=== PATIENT | female | born 1950 | race Caucasian/White ===

== ENCOUNTER → 2017-04-16 | Outpatient (CLI) | payer MEDICARE ==
--- NOTE | 2017-04-16 15:03 | XR ---
EXAM TYPE: LUMBAR SPINE X RAY SERIES COMPARISON: NONE HISTORY: Pain TECHNIQUE: 4 views are submitted. FINDINGS: There is diffuse osteopenia and a grade 1 anterolisthesis L4 and L5. Severe degenerative disc disease L4-5 and L5-S1 with mild changes at the remaining levels. Severe facet arthropathy L4-5 and L5-S1. S urgical clips in the right upper quadrant. IMPRESSION: 1. Multilevel degenerative disc disease and facet arthropathy with grade 1 anterolisthesis L4 on L5. Correlate with MRI. Foraminal encroachment suspected.
== END | disposition home or self-care (01) ==
LOC: RADXRYALE 10:43
PROVIDERS: ATTEND Internal Medicine
DX: M51.16 Intervertebral disc disorders with radiculopathy, lumbar region (principal); M43.16 Spondylolisthesis, lumbar region; M46.86 Other specified inflammatory spondylopathies, lumbar region
CPT/HCPCS: 72110

== ENCOUNTER → 2017-06-26 | Outpatient (CLI) | payer MEDICARE ==
--- NOTE | 2017-06-29 08:43 | MM ---
Reason for exam: screening (asymptomatic). Last mammogram was performed 1 year ago. History: Patient is postmenopausal. Family history of premenopausal breast cancer in maternal cousin at age 30. 2 benign excisional biopsies of the right breast, 2005. Took hormonal contraceptives for 4 years beginning at age 23. Took progesterone for 3 months. Physical Findings: A clinical breast exam by your physician is recommended on an annual basis and results should be correlated with mammographic findings. MG 3D Screening Mammo W/Cad Bilateral CC and MLO view(s) were taken. Prior study comparison: June 20, 2016, bilateral MG screening mammo w CAD. June 04, 2015, bilateral MG screening mammo w CAD. There are scattered fibroglandular densities. There is no discrete abnormality. No significant changes when compared with prior studies. ASSESSMENT: Negative, BI-RAD 1 RECOMMENDATION: Routine screening mammogram of both breasts in 1 year.
== END | disposition home or self-care (01) ==
LOC: RADMAMWWP 10:00
PROVIDERS: ATTEND Internal Medicine
DX: Z12.31 Encounter for screening mammogram for malignant neoplasm of breast (principal)
CPT/HCPCS: 77063; G0202

== ENCOUNTER → 2018-07-29 | Outpatient (CLI) | payer MEDICARE ==
--- NOTE | 2018-07-30 14:17 | MM ---
Reason for exam: screening (asymptomatic). Last mammogram was performed 1 year and 1 month ago. History: Patient is postmenopausal. Family history of premenopausal breast cancer in maternal cousin at age 30. 2 benign excisional biopsies of the right breast, 2005. Took hormonal contraceptives for 4 years beginning at age 23. Took progesterone for 3 months. Physical Findings: A clinical breast exam by your physician is recommended on an annual basis and results should be correlated with mammographic findings. MG 3D Screening Mammo W/Cad Bilateral CC and MLO view(s) were taken. Prior study comparison: June 26, 2017, bilateral MG 3d screening mammo w/cad. June 20, 2016, bilateral MG screening mammo w CAD. There are scattered fibroglandular densities. No suspicious abnormality. Focal asymmetry, stable in the right upper outer quadrant at middle depth post surgical change on the right. No significant changes when compared with prior studies. ASSESSMENT: Benign, BI-RAD 2 RECOMMENDATION: Routine screening mammogram of both breasts in 1 year.
== END ==
LOC: RADMAMWWP 13:04
PROVIDERS: ATTEND Internal Medicine
DX: Z12.31 Encounter for screening mammogram for malignant neoplasm of breast (principal)
CPT/HCPCS: 77063; 77067

== ENCOUNTER 2019-05-11 09:09 | Day surgery (SDC) | payer MEDICARE ==
[2019-05-10 09:29] VITALS: BMI 33.8
[~2019-05-11 09:09] MED LIST: LACTATED RINGERS 1,000 ML IV SCH; LIDOCAINE 1% 20 ML VIAL (10MG/ML) FOR IV START INTRADERMA PRN
[2019-05-11 09:38] VITALS: TEMP 98.5
[2019-05-11] MEDS ORDERED: LIDOCAINE 1% INJ 10MG/ML (20 ML MDV) ONE (09:53)
[2019-05-11] MEDS ORDERED: PROPOFOL 10 MG/ML 20 ML VIAL IV ONE (09:53)
--- NOTE | 2019-05-11 10:11 | P.PCN ---
Date of Procedure: 05/11/19 Procedure(s) Performed: BRIEF HISTORY: Patient is a 69-year-old pleasant white female, scheduled for an elective colonoscopy as a part of evaluation of intermittent rectal bleeding. PROCEDURE PERFORMED: Colonoscopy. PREOPERATIVE DIAGNOSIS: Intermittent rectal bleeding. IV sedation per Anesthesia. PROCEDURE: After informed consent was obtained, the patient, was brought into the endoscopy unit. IV sedation was administered by Anesthesia under continuous monitoring. Digital rectal examination was normal. Initially the Olympus CF-160 flexible video colonoscope was then inserted in the rectum, gradually advanced into the cecum without any difficulty. Careful examination was performed as the scope was gradually being withdrawn. Ileocecal valve and the appendiceal orifice were visualized and appeared normal. Prep was excellent. Mucosa of the cecum, ascending colon, transverse colon, descending colon, sigmoid colon, and rectum appeared normal. Scattered sigmoid diverticulosis seen. Retroflexion was performed in the rectum and all internal hemorrhoids were seen. The patient tolerated the procedure well. IMPRESSION: She was advised to have a repeat screening colonoscopy in 10 years. Normal- appearing colon from rectum to cecum with no evidence of colorectal neoplasia. Scattered diverticulosis Small internal hemorrhoids RECOMMENDATIONS: Findings of this examination were discussed with the patient as well as a family..
[2019-05-11 10:17] VITALS: RESP 18
[2019-05-11 10:30] VITALS: BP 144/87; PULSE 53
== END 2019-05-11 11:07 | disposition home or self-care (01) ==
LOC: ORWHC2ENDO 09:09
PROVIDERS: ATTEND Internal Medicine Gastroenterology
DX: K57.30 Diverticulosis of large intestine without perforation or abscess without bleeding (principal); K64.8 Other hemorrhoids; Z88.2 Allergy status to sulfonamides
CPT/HCPCS: 45378; J2001; J2704

== ENCOUNTER → 2019-09-07 | Outpatient (CLI) | payer MEDICARE ==
--- NOTE | 2019-09-08 10:10 | MM ---
Reason for exam: screening (asymptomatic). Last mammogram was performed 1 year and 1 month ago. History: Patient is postmenopausal. Family history of premenopausal breast cancer in maternal cousin at age 30. 2 benign excisional biopsies of the right breast, 2005. Took hormonal contraceptives for 4 years beginning at age 23. Took progesterone for 3 months. Physical Findings: A clinical breast exam by your physician is recommended on an annual basis and results should be correlated with mammographic findings. MG 3D Screening Mammo W/Cad Bilateral CC and MLO view(s) were taken. Prior study comparison: July 29, 2018, bilateral MG 3d screening mammo w/cad. June 26, 2017, bilateral MG 3d screening mammo w/cad. There are scattered fibroglandular densities. Benign appearing calcifications in the right breast. No suspicious abnormality. Post surgical simon on the right. No significant changes when compared with prior studies. ASSESSMENT: Benign, BI-RAD 2 RECOMMENDATION: Routine screening mammogram of both breasts in 1 year.
== END | disposition home or self-care (01) ==
LOC: RADMAMWWP 10:47
PROVIDERS: ATTEND Internal Medicine
DX: Z12.31 Encounter for screening mammogram for malignant neoplasm of breast (principal)
CPT/HCPCS: 77063; 77067

== ENCOUNTER → 2019-09-19 | Outpatient (CLI) | payer MEDICARE ==
--- NOTE | 2019-09-19 10:17 | BD ---
EXAMINATION TYPE: Axial Bone Density DATE OF EXAM: 09/19/2019 COMPARISON: NONE CLINICAL HISTORY: N 95.1 Height: 5 FT 2 IN Weight: 198 FRAX RISK QUESTIONS: Alcohol (3 or more units per day): NO Family History (Parent hip fracture): NO Glucocorticoids (More than 3mos): NO (Ex: prednisone, prednisolone, methylprednisolone, dexamethasone, and hydrocortisone). History of Fracture in Adulthood: NO Secondary Osteoporosis: 1. Type 1 Diabetes: NO 2. Hyperthyroidism: NO 3. Menopause before 45: NO 4. Malnutrition: NO 5. Chronic liver disease: NO Rheumatoid Arthritis: NO Current Tobacco Use: NO RISK FACTORS HISTORY OF: Family History of Osteoporosis: MOTHER Active: MODERATE Postmenopausal woman: AGE 58 Lost more than 2 inches in height since high school: YES MEDICATIONS: Additional Medications: CLARITIN Additional History: STEROID INJ TO WRISTS EXAM MEASUREMENTS: Bone mineral densitometry was performed using the [employer] System. Bone mineral density as measured about the Lumbar spine is: ----- L1-L4(G/cm2): 1.043 T Score Values are as follows: ----- L2: -1.6 ----- L3: -1.0 ----- L4: -0.1 ----- L1-L4: -1.1 BASELINE Bone mineral density about the R hip (g/cm2): 0.746 Bone mineral density about the L hip (g/cm2): 0.845 T Score values are as follows: -----R Neck: -2.1 -----L Neck: -1.4 -----R Total: -1.1 -----L Total: -0.4 BASELINE IMPRESSION: Osteopenia (T Score between -2.5 and -1). There is slightly increased risk of fracture and the patient may be considered for treatment. Re-Screen 2-5 years. NOTE: T-SCORE=SD OF THE YOUNG ADULT MEAN.
== END | disposition home or self-care (01) ==
LOC: RADBDWWP 09:17
PROVIDERS: ATTEND Internal Medicine
DX: M85.80 Other specified disorders of bone density and structure, unspecified site (principal); N95.1 Menopausal and female climacteric states
CPT/HCPCS: 77080

== ENCOUNTER 2021-04-29 19:54 | Emergency (ER) | payer MEDICARE ==
[2021-04-29 21:00] VITALS: BP 108/72; PULSE 64; RESP 16; TEMP 98.5
--- NOTE | 2021-04-29 21:40 | XR ---
Result: History: Pain. Comparison: None available. Technique: 4 views of the right wrist. Findings: There is questionable nondisplaced fracture of the ulnar styloid process. There is small subchondral cystic change of the scaphoid proximal pole. Otherwise joint joint spaces are preserved. Impression: Questionable nondisplaced ulnar styloid process fracture.
--- NOTE | 2021-04-29 22:01 | ED ---
Upper Extremity HPI - General Chief Complaint: Extremity Injury, Upper Stated Complaint: R wrist injury Time Seen by Provider: 04/29/21 21:44 Source: patient, RN notes reviewed Mode of arrival: ambulatory Limitations: no limitations - History of Present Illness Initial Comments: Patient is a 71-year-old female that presents to emergency department compl aining of right wrist pain. She notes that she was at home when her dog jumped up on her and knocked her over she fell and hit her right wrist. She notes that the pain gradually got worse. She noted that she did have full range of motion sensation in her right hand and fingers. She wanted come evaluated for possible fracture. She denied any other issues or complaints. She was a well-appearing 71-year-old female in no apparent distress or pain. She denied any chest pain shortness breath headache nausea vomiting diarrhea constipation fever fatigue chills. - Related Data Home Medications Medication Instructions Recorded Confirmed No Known Home Medications 05/10/19 05/11/19 Allergies Allergy/AdvReac Type Severity Reaction Status Date / Time gluten Allergy Unknown Bloating, Verified 04/29/21 20:57 Digestive problems, Acne Sulfa (Sulfonamide Allergy Unknown Nausea & Verified 04/29/21 20:57 Antibiotics) Vomiting, Fever Review of Systems ROS Statement: Those systems with pertinent positive or pertinent negative responses have been documented in the HPI. ROS Other: All systems not noted in ROS Statement are negative. Past Medical History Past Medical History: Asthma Additional Past Medical History / Comment(s): SEASONAL ASTHMA & ENVIRONMENTAL ALLERGIES (MOLD), OCCASIONAL BLOOD IN STOOL. History of Any Multi-Drug Resistant Organisms: None Reported Past Surgical History: Section, Cholecystectomy, Tonsillectomy Additional Past Surgical History / Comment(s): COLONOSCOPY'S, LASEK EYE SURGERY Past Anesthesia/Blood Transfusion Reactions: No Reported Reaction Past Psychological History: No Psychological Hx Reported Smoking Status: Never smoker Past Alcohol Use History: None Reported Past Drug Use History: None Reported - Past Family History Mother Family Medical History: Cancer Father Family Medical History: Cancer Additional Family Medical History / Comment(s): LUNG CA WITH METS General Exam Limitations: no limitations General appearance: alert, in no apparent distress Head exam: Present: atraumatic, normocephalic, normal inspection Eye exam: Present: normal appearance, PERRL, EOMI. Absent: scleral icterus, conjunctival injection, periorbital swelling Neck exam: Present: normal inspection Respiratory exam: Present: normal lung sounds bilaterally. Absent: respiratory distress, wheezes, rales, rhonchi, stridor Cardiovascular Exam: Present: regular rate, normal rhythm, normal heart sounds. Absent: systolic murmur, diastolic murmur, rubs, gallop, clicks Extremities exam: Present: normal inspection, full ROM, normal capillary refill, other (Minimal tenderness over the ulnar aspect of the right wrist.). Absent: tenderness, pedal edema, joint swelling, calf tenderness Neurological exam: Present: alert, oriented X3 Psychiatric exam: Present: normal affect, normal mood Skin exam: Present: warm, dry, intact, normal color. Absent: rash Course Vital Signs 04/29/21 20:57 Temperature 98.5 F Pulse Rate 64 Respiratory 16 Rate Blood Pressure 108/72 O2 Sat by Pulse 98 Oximetry Procedures - Orthopedic Splinting/Casting Injury #1 Side: right Upper Extremity Injury Location: wrist Upper Extremity Immobilizer: volar splint, Franc wrap, synthetic pre-padded splint Medical Decision Making - Medical Decision Making 71-year-old female complaining of right wrist pain. X-ray the right wrist ordered. X-ray shows a questionable nondisplaced ulnar styloid fracture. Patient was splinted and will be given referral to orthopedics. Case discussed with Dr. Islas, itching discharge home. Disposition Clinical Impression: Fracture of right ulnar styloid Disposition: HOME SELF-CARE Condition: Stable Instructions (If sedation given, give patient instructions): Hand Fracture (ED) Additional Instructions: Please return to the Emergency Department if symptoms worsen or any other concerns. Follow-up with primary care 1-2 days. Follow-up with orthopedics as needed. Take Tylenol and Motrin as needed for pain. Is patient prescribed a controlled substance at d/c from ED?: No Referrals: Marcie Alejo MD [Primary Care Provider] - 1-2 days Emanuel Romero MD [Medical Doctor] - 1-2 days Time of Disposition: 22:01
== END 2021-04-29 22:06 | disposition home or self-care (01) ==
LOC: EC 19:54
DX: S52.614A Nondisplaced fracture of right ulna styloid process, initial encounter for closed fracture (principal); J45.909 Unspecified asthma, uncomplicated; Z88.2 Allergy status to sulfonamides; Z90.49 Acquired absence of other specified parts of digestive tract; Z90.89 Acquired absence of other organs; W01.198A Fall on same level from slipping, tripping and stumbling with subsequent striking against other object, initial encounter
CPT/HCPCS: 29125; 99283

== ENCOUNTER → 2022-02-20 | Outpatient (CLI) | payer MEDICARE ==
--- NOTE | 2022-02-21 08:23 | MM ---
Reason for Exam: Screening (asymptomatic). Last mammogram was performed 2 year(s) and 6 month(s) ago. Patient History: Menarche at age 14. First Full-Term at age 22. Postmenopausal. Progesterone for 3 months. Hormonal Contraceptives for 4 years from age 23 until age 27. 2005, Benign Excisional Biopsy on the right side. 2005, Benign Excisional Biopsy on the right side. Maternal cousin had breast cancer, age 30. Risk Values: Johanny 5 year model risk: 2.3%. NCI Lifetime model risk: 7.1%. Prior Study Comparison: 06/26/2017 Bilateral Screening Mammogram, [facility]. 07/29/2018 Bilateral Screening Mammogram, [facility]. 09/07/2019 Bilateral Screening Mammogram, [facility]. Tissue Density: The breast tissue is almost entirely fat. Findings: Analyzed By CAD. There is no suspicious group of microcalcifications or new suspicious mass in either breast. Overall Assessment: Negative, BI-RAD 1 Management: Screening Mammogram of both breasts in 1 year. A clinical breast exam by your physician is recommended on an annual basis and results should be correlated with mammographic findings. Electronically signed and approved by: Renato Johnson DO
== END | disposition home or self-care (01) ==
LOC: RADMAMWWP 13:24
PROVIDERS: ATTEND Internal Medicine
DX: Z12.31 Encounter for screening mammogram for malignant neoplasm of breast (principal); Z78.0 Asymptomatic menopausal state
CPT/HCPCS: 77063; 77067

== ENCOUNTER → 2023-03-31 | Outpatient (CLI) | payer MEDICARE ==
--- NOTE | 2023-04-01 13:43 | MM ---
Reason for Exam: Screening (asymptomatic). Last mammogram was performed 1 year(s) and 1 month(s) ago. Patient History: Menarche at age 14. First Full-Term at age 22. Postmenopausal. Progesterone for 3 months. Hormonal Contraceptives for 4 years from age 23 until age 27. 2006, Benign Excisional Biopsy on the right side. 2006, Benign Excisional Biopsy on the right side. Maternal cousin had breast cancer, age 30. Risk Values: Johanny 5 year model risk: 2.3%. NCI Lifetime model risk: 6.7%. Prior Study Comparison: 07/29/2018 Bilateral Screening Mammogram, [facility]. 09/07/2019 Bilateral Screening Mammogram, [facility]. 02/20/2022 Bilateral MG 3D screening mammo w/cad, [facility]. Tissue Density: The breast tissue is heterogeneously dense. This may lower the sensitivity of mammography. Findings: Analyzed By CAD. There is no suspicious group of microcalcifications or new suspicious mass in either breast. Overall Assessment: Negative, BI-RAD 1 Management: Screening Mammogram of both breasts in 1 year. . Patient should continue monthly self-breast exams. A clinical breast exam by your physician is recommended on an annual basis. This exam should not preclude additional follow-up of suspicious palpable abnormalities. Note on Johanny scores and lifetime risk: 1. A Johanny score greater than 3% is considered moderate risk. If this is the case, consider specialist referral to assess eligibility for a risk reducing agent. 2. If overall lifetime risk for the development of breast cancer is 20% or higher, the patient may qualify for future screening with alternating mammogram and breast MRI. Electronically signed and approved by: Edgar Phillips M.D. Radiologis
--- NOTE | 2023-04-01 23:25 | BD ---
EXAMINATION TYPE: Axial Bone Density DATE OF EXAM: 03/31/2023 CLINICAL HISTORY: 72 years old Female. ICD-10 CODE: N95.8 Height: 61.25 Weight: 178.9 FRAX RISK QUESTIONS: Alcohol (3 or more units per day): no Family History (Parent hip fracture): no Glucocorticoids (More than 3mos): no History of Fracture in Adulthood: no Secondary Osteoporosis: 1. Type 1 Diabetes: no 2. Hyperthyroidism: no 3. Menopause before 45: no 4. Malnutrition: no 5. Chronic liver disease: no Rheumatoid Arthritis: no Current Tobacco Use: no RISK FACTORS HISTORY OF: Hip Fracture (Right/Left): no Spine Fracture: no History of Wrist Fracture: no Surgery to Spine/Hip(right/left)/Wrist (right/left): no Family History of Osteoporosis: mother, sister Active: yes Diet low in dairy products/other sources of calcium: no Postmenopausal woman: yes Take estrogen and/or progesterone medications: no Lost more than 2 inches in height since high school: yes Frequent falls: no Poor Health: no Hyperparathyroidism: no Adrenal Insufficiency: no MEDICATIONS: Prednisone or other steroids: no Thyroid Medications: no Osteoporosis Medications: no Additional Medications: Vit D, Multi Vit, Calcium, Fish Oil Additional History: EXAM MEASUREMENTS: Bone mineral densitometry was performed using the [employer] System. Bone mineral density as measured about the Lumbar spine is: ----- L1-L4(G/cm2): 1.049 T Score Values are as follows: ----- L1: -1.9 ----- L2: -2.3 ----- L3: -0.9 ----- L4: 0.1 ----- L1-L4: -1.1 Z Score Values are as follows: ----- L1: -0.7 ----- L2: -1.1 ----- L3: 0.2 ----- L4: 1.2 ----- L1-L4: 0.1 Bone mineral density has: increased 0.6 % since study of: 09/19/2019 Bone mineral density about the R hip (g/cm2): 0.855 Bone mineral density about the L hip (g/cm2): 0.859 T Score values are as follows: -----R Neck: -1.6 -----L Neck: -1.7 -----R Total: -1.2 -----L Total: -1.2 Z Score values are as follows: -----R Neck: -0.2 -----L Neck: -0.3 -----R Total: -0.1 -----L Total: -0.1 Bone mineral density has: decreased -6.7 % since study of: 09/19/2019 FRAX%s: The graph provided illustrates a 10.1% chance for a major osteoporotic fx and a 1.7% chance f or the hips probability for fx in 10 years time. IMPRESSION: Osteopenia (T Score between -2.5 and -1). There is slightly increased risk of fracture and the patient may be considered for treatment. Re-Screen 2-5 years. NOTE: T-SCORE=SD OF THE YOUNG ADULT MEAN.
== END | disposition home or self-care (01) ==
LOC: RADMAMWWP 15:18
PROVIDERS: ATTEND Internal Medicine
DX: Z12.31 Encounter for screening mammogram for malignant neoplasm of breast (principal); N95.8 Other specified menopausal and perimenopausal disorders; Z78.0 Asymptomatic menopausal state; Z80.3 Family history of malignant neoplasm of breast
CPT/HCPCS: 77063; 77067; 77080

== ENCOUNTER → 2024-04-01 | Outpatient (CLI) | payer MEDICARE ==
--- NOTE | 2024-04-18 10:23 | MM ---
Reason for Exam: Screening (asymptomatic). Last screening mammogram was performed 12 month(s) ago. Patient History: Menarche at age 14. First Full-Term at age 22. Postmenopausal. Progesterone for 3 months. Hormonal Contraceptives for 4 years from age 23 until age 27. 2006, Benign Excisional Biopsy on the right side. 2006, Benign Excisional Biopsy on the right side. Maternal cousin had breast cancer, age 30. Risk Values: Johanny 5 year model risk: 2.3%. NCI Lifetime model risk: 6.4%. Prior Study Comparison: 09/07/2019 Bilateral Screening Mammogram, [facility]. 02/20/2022 Bilateral MG 3D screening mammo w/cad, [facility]. 03/31/2023 Bilateral MG 3D screening mammo w/cad, [facility]. Tissue Density: There are scattered areas of fibroglandular density. Findings: Analyzed By CAD. There is no suspicious group of microcalcifications or new suspicious mass in either breast. Overall Assessment: Benign, BI-RAD 2 Management: Screening Mammogram of both breasts in 1 year. . Patient should continue monthly self-breast exams. A clinical breast exam by your physician is recommended on an annual basis. This exam should not preclude additional follow-up of suspicious palpable abnormalities. Note on Johanny scores and lifetime risk: 1. A Johanny score greater than 3% is considered moderate risk. If this is the case, consider specialist referral to assess eligibility for a risk reducing agent. 2. If overall lifetime risk for the development of breast cancer is 20% or higher, the patient may qualify for future screening with alternating mammogram and breast MRI. Electronically signed and approved by: Edgar Phillips M.D. Radiologis
== END | disposition home or self-care (01) ==
LOC: RADMAMWWP 13:00
PROVIDERS: ATTEND Internal Medicine
DX: Z78.0 Asymptomatic menopausal state (principal); Z80.3 Family history of malignant neoplasm of breast; R92.323 Mammographic fibroglandular density, bilateral breasts
CPT/HCPCS: 77063; 77067

== ENCOUNTER 2024-12-27 16:05 | Emergency (ER) | payer MEDICARE ==
[2024-12-27 16:10] VITALS: RESP 16
--- NOTE | 2024-12-27 16:45 | ED ---
Extremity Problem HPI - General Chief complaint: Extremity Problem,Nontraumatic Stated complaint: R leg pain Time Seen by Provider: 12/27/24 16:12 Source: patient Mode of arrival: ambulatory Limitations: no limitations - History of Present Illness Initial comments: 74-year-old female presenting with chief complaint of right leg pain. Patient has history of nerve pain in the lower extremities. She had an epidural yesterday and reports that this improved the pain but she was having some numbness. Later on in the evening the pain returned. She has a history of nerve pain and has previously been on gabapentin. She denies any other injury or trauma. She is still able to ambulate and is having no weakness in the lower extremities. - Related Data Home Medications Medication Instructions Recorded Confirmed No Known Home Medications 05/10/19 05/11/19 Allergies Allergy/AdvReac Type Severity Reaction Status Date / Time gluten Allergy Unknown Bloating, Verified 12/27/24 16:09 Digestive problems, Acne Sulfa (Sulfonamide Allergy Unknown Nausea & Verified 12/27/24 16:09 Antibiotics) Vomiting, Fever Review of Systems ROS Statement: Those systems with pertinent positive or pertinent negative responses have been documented in the HPI. ROS Other: All systems not noted in ROS Statement are negative. Past Medical History Past Medical History: Asthma Additional Past Medical History / Comment(s): SEASONAL ASTHMA & ENVIRONMENTAL ALLERGIES (MOLD), OCCASIONAL BLOOD IN STOOL. History of Any Multi-Drug Resistant Organisms: None Reported Past Surgical History: Section, Cholecystectomy, Tonsillectomy Additional Past Surgical History / Comment(s): COLONOSCOPY'S, LASEK EYE SURGERY Past Anesthesia/Blood Transfusion Reactions: No Reported Reaction Past Psychological History: No Psychological Hx Reported Smoking Status: Never smoker Past Alcohol Use History: None Reported Past Drug Use History: None Reported - Past Family History Mother Family Medical History: Cancer Father Family Medical History: Cancer Additional Family Medical History / Comment(s): LUNG CA WITH METS General Exam Limitations: no limitations General appearance: alert, in no apparent distress Head exam: Present: atraumatic, normocephalic, normal inspection Eye exam: Present: normal appearance, EOMI Neck exam: Present: normal inspection. Absent: meningismus Respiratory exam: Absent: respiratory distress Cardiovascular Exam: Present: regular rate Right Lower Leg exam: Present: normal inspection, full ROM. Absent: tenderness Neurological exam: Present: alert, oriented X3 Expanded Motor strength exam: RLE: 5, LLE: 5 Psychiatric exam: Present: normal affect, normal mood Skin exam: Present: warm, dry Course Vital Signs 12/27/24 12/27/24 16:06 18:08 Temperature 97.7 F 97.9 F Pulse Rate 58 L 61 Respiratory 16 16 Rate Blood Pressure 160/86 145/86 O2 Sat by Pulse 99 99 Oximetry Medical Decision Making - Medical Decision Making Was pt. sent in by a medical professional or institution (, [facility]RI[facility], OPERATIONS ARCHITECT, urgent care, hospital, or [facility]...) When possible be specific @ -No Did you speak to anyone other than the patient for history (EMS, parent, family, police, friend...)? What history was obtained from this source @ -No Did you review nursing and triage notes (agree or disagree)? Why? @ -I reviewed and agree with nursing and triage notes Were old charts reviewed (outside hosp., previous admission, EMS record, old EKG, old radiological studies, urgent care reports/EKG's, [facility] records)? Report findings @ -No old charts were reviewed Differential Diagnosis (chest pain, altered mental status, abdominal pain women, abdominal pain men, vaginal bleeding, weakness, fever, dyspnea, syncope, headache, dizziness, GI bleed, back pain, seizure, CVA, palpatations, mental health, musculoskeletal)? @ -Differential Musculoskeletal Muscular strain, contusion, ligament sprain, fracture, arthritis, septic arthritis, bursitis, cellulitis, muscle spasm, nerve compression, DVT, arterial occlusion, herpes zoster, electrolyte abnormality, tumor.... This is not meant to be in all inclusive list EKG interpreted by me (3pts min.). @ -As above X-rays interpreted by me (1pt min.). @ -None done CT interpreted by me (1pt min.). @ -None done U/S interpreted by me (1pt. min.). @ -None done What testing was considered but not performed or refused? (CT, X-rays, U/S, labs)? Why? @ -None What meds were considered but not given or refused? Why? @ -None Did you discuss the management of the patient with other professionals (professionals i.e. , ADRIAN, OPERATIONS ARCHITECT, lab, RT, psych nurse, social media analyst, hvac commercial salesperson, teacher, radiation safety officer, clinical case manager)? Give summary @ -No Was smoking cessation discussed for >3mins.? @ -No Was critical care preformed (if so, how long)? @ -No Were there social determinants of health that impacted care today? How? (Homelessness, low income, unemployed, alcoholism, drug addiction, transportation, low edu. Level, literacy, decrease access to med. care, penitentiary, rehab)? @ -No Was there de-escalation of care discussed even if they declined (Discuss DNR or withdrawal of care, Hospice)? DNR status @ -No What co-morbidities impacted this encounter? (DM, HTN, Smoking, COPD, CAD, Cancer, CVA, ARF, Chemo, Hep., AIDS, mental health diagnosis, sleep apnea, morbid obesity)? @ -None Was patient admitted / discharged? Hospital course, mention meds given and route, prescriptions, significant lab abnormalities, going to OR and other pertinent info. @ -74-year-old female presenting with chief complaint of nerve pain in the right leg. She has history of nerve pain and had an epidural yesterday. She is still able to ambulate but states that she gets shooting pain in her leg. No injury or trauma. No red flag symptoms. History and physical examination are conducted. Patient is treated with pain medication on reassessment reports improvement in her pain. Discharged. Follow-up with PCP. Report back to ER with any new or worsening symptoms. Discussed return parameters and answered all questions. Patient conveyed verbal understanding and agreed to the plan. I discussed this case in detail with my attending Dr. Khan Undiagnosed new problem with uncertain prognosis? @ -No Drug Therapy requiring intensive monitoring for toxicity (Heparin, Nitro, Insulin, Cardizem)? @ -No Were any procedures done? @ -No Diagnosis/symptom? @ -Nerve pain Acute, or Chronic, or Acute on Chronic? @ -Acute Uncomplicated (without systemic symptoms) or Complicated (systemic symptoms)? @ -Uncomplicated Side effects of treatment? @ -No Exacerbation, Progression, or Severe Exacerbation? @ -No Poses a threat to life or bodily function? How? (Chest pain, [place], AR, pneumonia, PE, COPD, DKA, ARF, appy, cholecystitis, CVA, Diverticulitis, Homicidal, Suicidal, threat to staff... and all critical care pts) @ -Unlikely Disposition Clinical Impression: Nerve pain Disposition: HOME SELF-CARE Condition: Good Instructions (If sedation given, give patient instructions): Moderate Sedation (ED) Additional Instructions: Follow-up with PCP. Report back to ER with any new or worsening symptoms. Is patient prescribed a controlled substance at d/c from ED?: No Referrals: Marcie Alejo MD [Primary Care Provider] - 1-2 days
[2024-12-27] MEDS: DEXAMETHASONE SOD PHOSPHATE 10 MG/ML 1 ML VIAL IM STA (16:46)
[2024-12-27] MEDS: HYDROmorphone 1 MG/ML 1 ML SYRINGE IM STA (16:46)
[2024-12-27] MEDS: LIDOCAINE 4% PATCH TOPICAL ONE (16:47)
[2024-12-27] MEDS: GABAPENTIN 300 MG CAP PO STA (17:27)
[2024-12-27] MEDS: KETOROLAC 15 MG/ML 1 ML VIAL IM STA (17:27)
[2024-12-27] MEDS: ONDANSETRON 4 MG ODT STARTER PACK 2 TAB BTL PO STA (18:02)
[2024-12-27] MEDS: ACET/COD 300 MG/30 MG STARTER PACK 6 TAB BTL PO STA (18:02)
[2024-12-27 18:10] VITALS: BP 145/86; PULSE 61; TEMP 97.9
== END 2024-12-27 18:10 | disposition home or self-care (01) ==
LOC: EC 16:05
DX: M79.604 Pain in right leg (principal); Z88.2 Allergy status to sulfonamides; Z88.8 Allergy status to other drugs, medicaments and biological substances
CPT/HCPCS: 99283; 96372 ×2; J1100; J1171; S0119